=== PATIENT | female | born 1945 | race Caucasian/White ===

== ENCOUNTER 2016-05-03 04:46 | Emergency (ER) | payer MEDICARE, BC ==
[~2016-05-03] VITALS: Ht 152.4 cm; Wt 52.2 kg
[~2016-05-03 04:46] MED LIST: NO REPORTABLE MEDS
[2016-05-03] MEDS ORDERED: IV SET PRIMARY 1 EA INFUS.SET MC ONE (05:26)
[2016-05-03] MEDS ORDERED: ONDANSETRON HCL/PF 4 MG/2 ML VIAL ONE (05:26)
[2016-05-03] MEDS ORDERED: MORPHINE SULFATE INJ 2 MG/ML DISP.SYRIN ONE (05:26)
[2016-05-03] MEDS ORDERED: IV NS 0.9% 1,000 ML ONE (05:26)
[2016-05-03] MEDS ORDERED: ONDANSETRON HCL/PF 4 MG/2 ML VIAL IVP ONE (05:30)
[2016-05-03] MEDS ORDERED: IV NS 0.9% 1,000 ML BAG IV ONE (05:30)
[2016-05-03] MEDS ORDERED: MORPHINE SULFATE INJ 2 MG/ML DISP.SYRIN IV ONE (05:30)
[2016-05-03 05:41] LABS: BASOPHILS % (AUTO) 0.2 % (0.0-2.0); DIFF TOTAL % 100 %; EOSINOPHILS % (AUTO) 0.1 % (0.0-6.0); HEMATOCRIT 42 % (33-45); HEMOGLOBIN 14.3 g/dL (11.5-14.8); LYMPHOCYTES # (AUTO) 1.2 /CMM (0.8-4.8); LYMPHOCYTES % (AUTO) 11.5 % (20.0-44.0); MEAN CORPUSCULAR HEMOGLOBIN 31 PG (26.0-33.0); MEAN CORPUSCULAR HGB CONC 34 g/dl (31.0-36.0); MEAN CORPUSCULAR VOLUME 90 fL (82-100); MONOCYTES # (AUTO) 0.8 /CMM (0.1-1.30); MONOCYTES % (AUTO) 7.9 % (2.0-12.0); NEUTROPHILS # (AUTO) 8.1 /CMM (1.8-8.9); NEUTROPHILS % (AUTO) 80.3 % (43.0-81.0); PLATELET COUNT (AUTO) 272 /CMM (150-450); RED BLOOD CELL COUNT(AUTO) 4.67 MIL/uL (4.0-5.2); WHITE BLOOD COUNT (AUTO) 10.1 K/uL (4.3-11.0)
[2016-05-03 05:42] LABS: KETONES,URINE 2+ (NEGATIVE); LEUKOCYTE ESTERASE ,URINE NEGATIVE (NEGATIVE)
[2016-05-03 05:52] LABS: ADD UA MICROSCOPIC YES
[2016-05-03 05:55] LABS: CALCIUM, SERUM 8.8 mg/dL (8.5-10.1); CREATININE 0.7 mg/dL (0.6-1.3); POTASSIUM 3.6 mmol/L (3.5-5.1)
[2016-05-03 06:00] LABS: WBC,URINE 0-2 /HPF (0-3)
[2016-05-03 06:01] LABS: ADD URINE CULTURE NO; ALBUMIN 3.3 g/dL (3.4-5.0); BILIRUBIN,DIRECT 0.7 mg/dL (0.0-0.2); BILIRUBIN,TOTAL 1.7 mg/dL (0.2-1.0); MUCUS,URINE Moderate /LPF (None Seen)
[2016-05-03 06:13] LABS: INR 1.1 (0.87-1.13); PROTHROMBIN TIME 11.9 SECS (9.5-12.7)
[2016-05-03 06:26] VITALS: BP 123/76
== END 2016-05-03 06:47 | disposition home or self-care (01) ==
LOC: ER 04:48
DX: R10.9 Unspecified abdominal pain (principal); R31.9 Hematuria, unspecified; Z76.0 Encounter for issue of repeat prescription; Z88.0 Allergy status to penicillin; Z88.2 Allergy status to sulfonamides
CPT/HCPCS: 36415; 80048-TC; 80076-TC; 81000-TC; 83690-TC; 85025-TC; 85730-TC; A4606; J2270; J2405; J7030; Z7610

== ENCOUNTER 2018-11-14 03:57 | Emergency (ER) | payer MEDICARE, BC ==
[~2018-11-14] VITALS: Ht 152.4 cm; Wt 68.5 kg
[2018-11-14] MEDS ORDERED: ONDANSETRON HCL/PF 4 MG/2 ML VIAL ONE (04:29)
[2018-11-14] MEDS ORDERED: HYDROMORPHONE 1 MG/1 ML DISP.SYRIN ONE ×2 (04:29→06:36)
[2018-11-14 04:37] LABS: BASOPHILS % (AUTO) 0.2 % (0.0-2.0); HEMATOCRIT 42 % (33-45); HEMOGLOBIN 14.6 g/dL (11.5-14.8); LYMPHOCYTES # (AUTO) 0.7 /CMM (0.8-4.8); LYMPHOCYTES % (AUTO) 4.8 % (20.0-44.0); MEAN CORPUSCULAR HGB CONC 35 g/dl (31.0-36.0); MEAN CORPUSCULAR VOLUME 95 fL (82-100); MONOCYTES # (AUTO) 0.9 /CMM (0.1-1.30); MONOCYTES % (AUTO) 6.4 % (2.0-12.0); NEUTROPHILS # (AUTO) 12.9 /CMM (1.8-8.9); NEUTROPHILS % (AUTO) 88.6 % (43.0-81.0); PLATELET COUNT (AUTO) 198 /CMM (150-450); RED BLOOD CELL COUNT(AUTO) 4.44 MIL/uL (4.0-5.2); WHITE BLOOD COUNT (AUTO) 14.5 K/uL (4.3-11.0)
[2018-11-14] MEDS: IV NS 0.9% 1,000 ML BAG IV ONE (04:38)
[2018-11-14] MEDS: HYDROMORPHONE INJ 2 MG/ML DISP.SYRIN IV ONE (04:38)
[2018-11-14] MEDS: ONDANSETRON HCL/PF 4 MG/2 ML VIAL IVP ONE (04:39)
[2018-11-14 04:53] LABS: ALBUMIN 4.6 g/dL (3.4-5.0); BILIRUBIN,DIRECT 0.2 mg/dL (0.0-0.2); BILIRUBIN,TOTAL 1.1 mg/dL (0.2-1.0); CALCIUM, SERUM 9.1 mg/dL (8.5-10.1); CREATININE 0.7 mg/dL (0.6-1.3); POTASSIUM 4.6 mmol/L (3.5-5.1); TOTAL PROTEIN, SERUM 7.9 g/dL (6.4-8.2)
[2018-11-14] MEDS ORDERED: CT SWABBABLE VALVE TRANS SET 1 EA INFUS.SET MC ONE (05:07)
[2018-11-14] MEDS ORDERED: IOHEXOL-300 100 ML VIAL IV ONE (05:07)
[2018-11-14] MEDS ORDERED: IV NS 0.9% 250 ML IV ONE (05:07)
--- NOTE | 2018-11-14 05:15 | NUR ---
DIVINE FROM HOME WITH . TO ER BED 9. AAOX4. NO RESP DISTRESS NOTED, BREATHING EVEN AND UNLABORED. C/O ABDOMINAL PAIN. PT REPORTS HAVING NAUSEA, VOMITING AND DIARRHEA. PT STATES THAT SHE THOUGHT IT WAS THE DINNER. MD AT BEDSIDE FOR EVAL, ORDERS RECEIVED NOTED AND CARRIED OUT. IV LINE OBTAINED ON R AC 20G. BLOOD DRAWN AND GIVEN TO VETERINARY PRACTITIONER AT BEDSIDE.
--- NOTE | 2018-11-14 05:17 | NUR ---
PT TRANSPORTED TO RADIOLOGY FOR CT ABD/PELVIS.
--- NOTE | 2018-11-14 05:28 | NUR ---
PT BACK FROM RADIOLOGY. PENDING CT RESULT.
[2018-11-14] MEDS: HYDROMORPHONE 1 MG/1 ML DISP.SYRIN IV ONE (06:41)
--- NOTE | 2018-11-14 07:20 | NUR ---
RECEIVED REPORT FROM DIOMEDES MATHEWS FOR ROSALINDA. PT IS AAOX3, NOT IN RESPIRATORY DITRESS, ONGOING US AT BEDSIDE. AWAITING RESULT.
--- NOTE | 2018-11-14 08:08 | NUR ---
SPOKE TO KARLEE TO PAGE DR. HOUGH FOR DR. GERA SIMPSON. AWAITING CALL BACK.
--- NOTE | 2018-11-14 08:14 | NUR ---
MD TO MD IN PROGRESS.
--- NOTE | 2018-11-14 08:27 | NUR ---
IV removed. Catheter intact and site benign. Pressure and 4x4 applied to site. No bleeding noted. Patient discharged to home in stable condition. Written and verbal after care instructions given. Patient verbalizes understanding of instruction.
[2018-11-14 08:28] VITALS: BP 114/57
== END 2018-11-14 08:34 | disposition home or self-care (01) ==
LOC: ER 03:57
DX: R11.2 Nausea with vomiting, unspecified (principal); R19.7 Diarrhea, unspecified; R42 Dizziness and giddiness; Z88.0 Allergy status to penicillin; Z88.2 Allergy status to sulfonamides
CPT/HCPCS: 36415; 74177; 76705; 80048; 80076; 83690; 85025; 85730; 96361; 96374; 96375; 96376; 99284; J1170 ×2; J2405; J7030; J7050; Q9967

== ENCOUNTER 2021-11-22 07:47 | Emergency (ER) | payer MEDICARE, BC ==
[~2021-11-22] VITALS: Ht 152.4 cm; Wt 52.2 kg
--- NOTE | 2021-11-22 08:07 | NUR ---
BIB C/O RLQ ABDOMINAL PAIN X3 DAYS UPON ASSESSMENT PT STATED THE PAIN IS A DULL PAIN AND LOCATED RIGHT ON HER R HIP. PT STATED THAT HER PMD HAS CONCERNED ABOUT BONE DENSITY, DENIES ANY TRAUMA. PAIN IS 4/10 ON PAIN SCALE. VITALS ARE WITHIN NORMAL LIMITS. DR SANDERS AT BEDSIDE. AWAITING MD ORDERS.
--- NOTE | 2021-11-22 08:59 | NUR ---
urine collected and sent to lab.
--- NOTE | 2021-11-22 09:03 | NUR ---
Wheeled patient via gurney accompanied by [facility] in no distress for ct abd.
[2021-11-22 09:12] LABS: CALCIUM, SERUM 9.3 mg/dL (8.5-10.1); CREATININE 0.7 mg/dL (0.6-1.3); POTASSIUM 3.7 mmol/L (3.5-5.1)
[2021-11-22 09:52] LABS: BILIRUBIN,URINE NEGATIVE (NEGATIVE); COLOR,URINE YELLOW (YELLOW); LEUKOCYTE ESTERASE ,URINE NEGATIVE (NEGATIVE); NITRITE, URINE NEGATIVE (NEGATIVE); PROTEIN,URINE NEGATIVE (NEGATIVE); UGLUCOSE NEGATIVE (NEGATIVE)
[2021-11-22 10:32] LABS: BASOPHILS % (AUTO) 0.1 % (0.0-2.0); EOSINOPHILS % (AUTO) 1.7 % (0.0-6.0); HEMATOCRIT 44 % (33-45); HEMOGLOBIN 14.6 g/dL (11.5-14.8); LYMPHOCYTES # (AUTO) 1.4 K/uL (0.8-4.8); LYMPHOCYTES % (AUTO) 25.3 % (20.0-44.0); MEAN CORPUSCULAR HGB CONC 33 g/dl (31.0-36.0); MEAN CORPUSCULAR VOLUME 90 fL (82-100); MONOCYTES # (AUTO) 0.5 K/uL (0.1-1.30); MONOCYTES % (AUTO) 8.8 % (2.0-12.0); NEUTROPHILS # (AUTO) 3.6 K/uL (1.8-8.9); NEUTROPHILS % (AUTO) 64.1 % (43.0-81.0); PLATELET COUNT (AUTO) 193 K/uL (150-450); RED BLOOD CELL COUNT(AUTO) 4.89 MIL/uL (4.0-5.2); WHITE BLOOD COUNT (AUTO) 5.7 K/uL (4.3-11.0)
[2021-11-22 10:42] LABS: RBC,URINE 0-2 /HPF (0-2); WBC,URINE 0-2 /HPF (0-3)
[2021-11-22 10:43] LABS: BACTERIA,URINE Few /HPF (None Seen); CALCIUM OXALATE CRYSTALS,UR Few /HPF (None Seen); SQUAMOUS EPITHELIAL CELL,UR Few /HPF (None Seen)
[2021-11-22 10:48] VITALS: BP 124/74
--- NOTE | 2021-11-22 10:48 | NUR ---
Patient discharged to home in stable condition. Written and verbal after care instructions given. Patient verbalizes understanding of instruction.IV removed. Catheter intact and site benign. Pressure and 4x4 applied to site. No bleeding noted.
== END 2021-11-22 10:48 | disposition home or self-care (01) ==
LOC: ER 07:51
DX: S22.089A Unspecified fracture of T11-T12 vertebra, initial encounter for closed fracture (principal); S30.1XXA Contusion of abdominal wall, initial encounter; N83.209 Unspecified ovarian cyst, unspecified side; Z88.0 Allergy status to penicillin; Z88.2 Allergy status to sulfonamides; X58.XXXA Exposure to other specified factors, initial encounter; Y93.89 Activity, other specified; Y92.89 Other specified places as the place of occurrence of the external cause; Y99.8 Other external cause status
CPT/HCPCS: 36415; 80048-TC; 81001; 85025-TC

== ENCOUNTER 2022-12-14 09:48 | Emergency (ER) | payer MEDICARE, BC ==
[~2022-12-14] VITALS: Ht 152.4 cm; Wt 52.2 kg
[2022-12-14] MEDS ORDERED: HYDROCODONE/APAP 5/325MG TABLET ONE (10:25)
[2022-12-14] MEDS ORDERED: HYDROCODONE/APAP 5/325MG TABLET PO ONE (10:30)
[2022-12-14] MEDS ORDERED: HYDR-4303 PO (13:02)
[2022-12-14] MEDS ORDERED: CALC3.7S BNOSTRILS (13:02)
[2022-12-14 13:55] VITALS: BP 119/82; TEMP 98; O2SAT 98
== END 2022-12-14 13:58 | disposition home or self-care (01) ==
LOC: ER 10:00
DX: S22.060A Wedge compression fracture of T7-T8 vertebra, initial encounter for closed fracture (principal); S22.070A Wedge compression fracture of T9-T10 vertebra, initial encounter for closed fracture; S22.080A Wedge compression fracture of T11-T12 vertebra, initial encounter for closed fracture; Z88.0 Allergy status to penicillin; Z88.2 Allergy status to sulfonamides; Z88.8 Allergy status to other drugs, medicaments and biological substances; W18.30XA Fall on same level, unspecified, initial encounter; Y93.89 Activity, other specified; Y92.89 Other specified places as the place of occurrence of the external cause; Y99.8 Other external cause status
CPT/HCPCS: 71100-TC; 72074-TC; 72100-TC